=== PATIENT | male | born 1950 | race Caucasian/White ===

== ENCOUNTER → 2022-07-07 10:49 | Outpatient (BNVA) | payer MEDICARE, SELFPAY | PROVIDERS: PCP Internal Medicine; Referring Provider Internal Medicine; Visit Provider Surgery | DX: K64.8 Other hemorrhoids (principal) | CPT/HCPCS: 99212 ==

== ENCOUNTER → 2022-07-09 14:52 | Outpatient (BNVA) | payer MEDICARE, SELFPAY | PROVIDERS: PCP Internal Medicine; Visit Provider Surgery | DX: K64.8 Other hemorrhoids (principal); Z79.899 Other long term (current) drug therapy | CPT/HCPCS: 99212 ==

== ENCOUNTER 2023-02-04 07:11 | Day surgery (SDC) | payer MEDICARE, SELFPAY ==
--- NOTE | 2023-02-03 11:42 | HO.ANESPROP2 ---
Documented by User: Alyssa Izaguirre NP 02/03/23 11:43 HPI - Anesthesia Eval Consult details Narrative: 72yo M for Colonoscopy PMFSH Active Problems Active Problems: All Active Problems (Updated 07/07/22 @ 12:26 by Jameel Schwarz MD) Prolapsed hemorrhoids (Acute) Hypertension (Acute) Past Medical History Medical History Hypertension Prolapsed hemorrhoids Family History Family History Mother Colon cancer Sister Colon cancer Social History Social History Alcohol intake: current Patient Tobacco Use Status: Former Tobacco user Quit Date: 30 years ago Use of substances other than those prescribed or required for medical reasons: No Are you DNR?: No Advance Directives: No Advance Directives Information Provided: Yes Meds Allergies Allergy/AdvReac Type Severity Reaction Status Date / Time No Known Allergies Allergy Unverified 07/09/22 15:12 [No Known Allergies*] Home Medications Medication Instructions Recorded Confirmed Last Taken Type losartan 50 mg tablet 50 mg PO DAILY 07/07/22 02/04/23 Unknown History nifedipine 30 mg tablet,extended 30 mg PO DAILY 02/03/23 02/04/23 02/04/23 History release 24 hr Exam Exam Date and Time: February 03, 2023 114 Assessment and Plan Assessment Anesthesia Assessment: Chart Reviewed Documented by User: Nona Betancourt MD 02/04/23 08:29 PMFSH Past Medical History Medical History Hypertension Prolapsed hemorrhoids Family History Family History Mother Colon cancer Sister Colon cancer Family history of problems with anesthesia: No Surgical History History of Problems with Anesthesia: No Social History Social History Alcohol intake: current Patient Tobacco Use Status: Former Tobacco user Quit Date: 30 years ago Use of substances other than those prescribed or required for medical reasons: No Are you DNR?: No Advance Directives: No Advance Directives Information Provided: Yes Meds Allergies Allergy/AdvReac Type Severity Reaction Status Date / Time No Known Allergies Allergy Unverified 07/09/22 15:12 [No Known Allergies*] Home Medications Medication Instructions Recorded Confirmed Last Taken Type losartan 50 mg tablet 50 mg PO DAILY 07/07/22 02/04/23 Unknown History nifedipine 30 mg tablet,extended 30 mg PO DAILY 02/03/23 02/04/23 02/04/23 History release 24 hr Exam Airway Mallampati Class: II TM Dist: >3cm Neck ROM: Full Heart: rrr Lungs: cta Assessment and Plan Assessment Anesthesia Assessment: Anesthesia Plan Discussed Final Anesthetic Review Family History of Problems with Anesthesia: No History of Problems with Anesthesia: No NPO: Yes ASA Class: II Final Preanesthetic Review: No Changes in Pt Med Stat, Meds/Allgs Chart Reviewed, Consent Obtained/Reviewed and Anes Risks/Benef Reviewed Patient Risk: Low Procedure Risk: Low Anesthetic Plan Anesthetic Plan: MAC: Disposition: Standard PACU
[2023-02-04 07:31] VITALS: BP 164/96; PULSE 90; RESP 18; TEMP 36.1; O2SAT 100; BMI 21.5
[2023-02-04] MEDS: Lactated Ringers 1,000 ML 100 ML IVCONT (07:51)
--- NOTE | 2023-02-04 09:04 | P.BOP_ITS ---
Brief Operative Note Date of Service: 02/04/23 Pre-op diagnosis: Screening Post-op diagnosis: other (Diverticulosis) Procedure: Colonoscopy to the cecum Surgeon: Rakesh Morgan Anesthesia: MAC Was an Continuous Vulcanizing Machine Operator used for this Procedure?: No Estimated blood loss (mL): 0 Pathology: none sent Condition: stable Disposition: PACU
[2023-02-04 09:05] VITALS: BP 105/67; PULSE 75; RESP 16; TEMP 36.1; O2SAT 99
[2023-02-04 09:20] VITALS: BP 131/83; PULSE 84; RESP 18; TEMP 36.4; O2SAT 99
--- NOTE | 2023-02-04 18:16 | OP_ITS ---
DATE OF SERVICE: 02/04/2023 SURGEON: Raeksh Morgan MD INDICATIONS: The patient presents for evaluation of colorectal cancer screening, personal history of tubular adenoma of the colon and family history of colon cancer. Full consent has been obtained from him for this, including risks of bleeding and perforation. PREOPERATIVE DIAGNOSIS: POSTOPERATIVE DIAGNOSIS: PROCEDURE PERFORMED: Colonoscopy to the cecum. ESTIMATED BLOOD LOSS: COMPLICATIONS: ANESTHESIA: Monitored anesthesia care. ASSISTANTS: SPECIMENS: PREOPERATIVE DIAGNOSES: Colorectal cancer screening, personal history of tubular adenoma of the colon, family history of colon cancer. POSTOPERATIVE DIAGNOSES: Colorectal cancer screening, personal history of tubular adenoma of the colon, family history of colon cancer, diverticulosis, and internal hemorrhoids. DESCRIPTION OF PROCEDURE: The patient was placed in the left lateral decubitus position. The digital rectal exam revealed no abnormalities. The Olympus video pediatric colonoscope was entered into the rectum and advanced easily to the cecum. Once in the cecum, I did identify normal-appearing cecal pouch with appendiceal orifice and a normal-appearing ileocecal valve. The entire cecum and ileocecal valve appeared normal. The scope was slowly withdrawn assessing all mucosal surface carefully. Preparation was excellent. I did not visualize any sign of polyps, nor colitis. There were 2 nonbleeding less than 5 mm angiodysplasias in the ascending colon. There was some diverticula noted around the area of the hepatic flexure. There was a mild amount of sigmoid diverticulosis in the sigmoid colon. In the rectum, scope was retroflexed visualizing some internal hemorrhoids, but no other pathology. The rectal mucosa appeared normal. Scope was straightened and withdrawn from the patient. He tolerated the procedure well and was returned to the recovery area in stable condition. IMPRESSION: 1. Diverticulosis. 2. Nonbleeding small angiodysplasias. 3. Internal hemorrhoids. PLAN: He will theoretically be due for another colonoscopy in 5 years for further screening, although at that point he will be just about 78 years old and we will have to take his clinical condition into account. He will otherwise see me on a p.r.n. basis. This has been discussed with his . MD EMI Dale/JOSE M / [id number] JOSH
== END 2023-02-04 09:52 | disposition home or self-care (01) ==
PROVIDERS: PCP Internal Medicine; Visit Provider Internal Medicine
PROC: 0DJD8ZZ Inspection of Lower Intestinal Tract, Via Natural or Artificial Opening Endoscopic (ICD-10-PCS; CPT 45378; principal; 2023-02-04 08:20)
DX: Z12.11 Encounter for screening for malignant neoplasm of colon (principal); Z86.010 Personal history of colon polyps; Z80.0 Family history of malignant neoplasm of digestive organs; K57.30 Diverticulosis of large intestine without perforation or abscess without bleeding; K64.8 Other hemorrhoids; K55.20 Angiodysplasia of colon without hemorrhage; I10 Essential (primary) hypertension; Z79.899 Other long term (current) drug therapy
CPT/HCPCS: G0105